=== PATIENT | female | born 1990 | race Caucasian/White ===

== ENCOUNTER 2018-05-10 12:28 | Inpatient (IN) | payer OTHER ==
[2018-05-10 13:39] VITALS: BMI 24.1
--- NOTE | 2018-05-10 16:35 | HP ---
CIWA Score - CIWA Score Nausea/Vomitin-No Nausea/No Vomiting Muscle Tremors: 4-Moderate,w/Arms Extend Anxiety: 4-Mod. Anxious/Guarded Agitation: 3 Paroxysmal Sweats: 2 Orientation: 0-Oriented Tacttile Disturbances: 1-Very Mild Itch/Numbness Auditory Disturbances: 0-None Visual Disturbances: 0-None Headache: 0-None Present CIWA-Ar Total Score: 14 Admission ROS S - HPI Chief Complaint: " My chief creative officer send me here" alcohol withdrawal symptoms Allergies/Adverse Reactions: Allergies Allergy/AdvReac Type Severity Reaction Status Date / Time No Known Allergies Allergy Verified 05/10/18 15:22 History of Present Illness: 27 yo female with hx of alcohol dependence is here seeking detox for the first times, reports first time in treatment, mandated by probation d/t DWI February 2018. Reports started having issues with alcohol as of last year. PMHX: anxiety. Denies suicidal / homicidal ideation or hx of suicide attempt. Reports no significant period of sobriety. Denies hx of seizures or blackouts. Exam Limitations: No Limitations - Ebola screening Have you traveled outside of the country in the last 21 days: No Have you had contact with anyone from an Ebola affected area: No Have you been sick,other than usual withdrawal symptoms: No Do you have a fever: No - Review of Systems Constitutional: Chills, Changes in sleep, Other (shakes) EENT: reports: No Symptoms Reported Respiratory: reports: No Symptoms reported Cardiac: reports: No Symptoms Reported GI: reports: Poor Fluid Intake, Abdominal cramping : reports: No Symptoms Reported Musculoskeletal: reports: No Symptoms Reported Integumentary: reports: Sweating Neuro: reports: Tremors, Weakness Endocrine: reports: No Symptoms Reported Hematology: reports: No Symptoms Reported Psychiatric: reports: Orientated x3, Anxious Other Systems: Reviewed and Negative Patient History - Patient Medical History Hx Anemia: No Hx Asthma: No Hx Chronic Obstructive Pulmonary Disease (COPD): No Hx Cancer: No Hx Cardiac Disorders: No Hx Congestive Heart Failure: No Hx Hypertension: No Hx Hypercholesterolemia: No Hx Pacemaker: No HX Cerebrovascular Accident: No Hx Seizures: No Hx Dementia: No Hx Diabetes: No Hx Gastrointestinal Disorders: No Hx Liver Disease: No Hx Genitourinary Disorders: No Hx Sexually Transmitted Disorders: No Hx Renal Disease (ESRD): No Hx Thyroid Disease: No Hx Human Immunodeficiency Virus (HIV): No (Last tested one moth ago, results NEG ) Hx Hepatitis C: No Hx Depression: No Hx Suicide Attempt: No Hx Bipolar Disorder: No Hx Schizophrenia: No Other Medical History: Anxiety - Patient Surgical History Past Surgical History: No Hx Neurologic Surgery: No Hx Cataract Extraction: No Hx Cardiac Surgery: No Hx Lung Surgery: No Hx Breast Surgery: No Hx Breast Biopsy: No Hx Abdominal Surgery: No Hx Appendectomy: No Hx Cholecystectomy: No Hx Genitourinary Surgery: No Hx Section: No Hx Orthopedic Surgery: No Anesthesia Reaction: No - PPD History Previous Implant?: Yes Documented Results: Negative w/o proof Implanted On Prior R Admission?: No PPD to be Administered?: Yes - Reproductive History Patient is a Female of Child Bearing Age (11 -55 yrs old): Yes Last Menstrual Period: 04/23/18 Patient : No - Smoking Cessation Smoking history: Current some day smoker Have you smoked in the past 12 months: Yes Aproximately how many cigarettes per day: 1 Hx Chewing Tobacco Use: No Initiated information on smoking cessation: Yes 'Breaking Loose' booklet given: 05/10/18 - Substance & Tx. History Hx Alcohol Use: Yes Hx Substance Use: Yes Substance Use Type: Alcohol Hx Substance Use Treatment: No - Substances Abused Alcohol-vodka/beer Route: Oral Frequency: Daily Amount used: 1 pt. + 1 x 6 pk. Age of first use: 22 Date of Last Use: 05/10/18 Family Disease History - Family Disease History Family History: Denies Admission Physical Exam BHS - Vital Signs Vital Signs: Vital Signs - 24 hr 05/10/18 13:27 Temperature 98.5 F Pulse Rate 90 Respiratory 18 Rate Blood Pressure 124/92 - Physical General Appearance: Yes: Disheveled, Moderate Distress, Alcohol on Breath, Tremorous, Sweating, Anxious HEENTM: Yes: EOMI, Hearing grossly Normal, Normal ENT Inspection, Normocephalic , Normal Voice, CHANTELL, Pharynx Normal, Tm's normal, Other (dry mucous membranes, cheilithis) Respiratory: Yes: Chest Non-Tender, Lungs Clear, Normal Breath Sounds, No Respiratory Distress, No Accessory Muscle Use Neck: Yes: Within Normal Limits Breast: Yes: Breast Exam Deferred Cardiology: Yes: Regular Rhythm, Regular Rate Abdominal: Yes: Normal Bowel Sounds, Non Tender, Flat, Soft Genitourinary: Yes: Within Normal Limits Back: Yes: Normal Inspection Musculoskeletal: Yes: full range of Motion, Gait Steady, Pelvis Stable, Back pain Extremities: Yes: Normal Capillary Refill, Normal Inspection, Normal Range of Motion, Non-Tender Neurological: Yes: advanced seal delivery system II-XII NML intact, Fully Oriented, Alert, Motor Strength 5/5, Depressed Affect Integumentary: Yes: Normal Color, Warm, Diaphoresis Lymphatic: Yes: Within Normal Limits - Diagnostic (1) Alcohol dependence with withdrawal Current Visit: Yes Status: Acute Qualifiers: Complication of substance-induced condition: uncomplicated Qualified Code(s ): F10.230 - Alcohol dependence with withdrawal, uncomplicated (2) Anxious mood Current Visit: Yes Status: Acute Cleared for Admission [facility] - Detox or Rehab [facility] Level of Care: Medically Managed Detox Regimen/Protocol: Librium [facility] Breath Alcohol Content Breath Alcohol Content: 0.054 Urine Pregancy Test - Result Urine Test Results: Negative- NO Line Present Urine Drug Screen - Results Drug Screen Negative: Yes
[2018-05-10] MEDS ORDERED: MAGNESIUM HYDROX 2400MG/30ML ORAL SUSPENSION 30 ML CUP PO PRN (16:36)
[2018-05-10] MEDS ORDERED: MAGNESIUM CITRATE 300 ML BOTTLE PO PRN (16:36)
[2018-05-10] MEDS ORDERED: guaiFENesin/D-METHORPHAN HB 10 ML UNIT-DOSE CUPS PO PRN (16:36)
[2018-05-10] MEDS ORDERED: IBUPROFEN 400 MG TABLET (FP) PO PRN (16:36)
[2018-05-10] MEDS ORDERED: MAG HYDROX/AL HYDROX/SIMETH 30 ML UNIT-DOSE CUP PO PRN (16:36)
[2018-05-10] MEDS ORDERED: MENTHOL/PHENOL 1 EACH UD MM PRN (16:36)
[2018-05-10] MEDS ORDERED: LOPERAMIDE HCL 2 MG CAPSULE PO PRN (16:36)
[2018-05-10] MEDS ORDERED: chlordiazePOXIDE HCL 25 MG CAPSULE PO ONE (16:36)
[2018-05-10] MEDS ORDERED: P-EPHED 60MG/TRIPROLIDI 2.5MG TABLET PO PRN (16:36)
[2018-05-10] MEDS: chlordiazePOXIDE HCL 25 MG CAPSULE PO PRN (17:54)
[2018-05-10] MEDS: hydrOXYzine PAMOATE 50 MG CAPSULE (FP) PO PRN (17:54)
[2018-05-10] MEDS: THIAMINE HCL 100 MG TABLET (FP) PO SCH (22:15)
[2018-05-10] MEDS: MELATONIN 5 MG TABLETS PO PRN (22:15)
[2018-05-10] MEDS: chlordiazePOXIDE HCL 25 MG CAPSULE PO SCH (22:15)
[2018-05-10] MEDS: BACLOFEN 10 MG TABLET (FP) PO SCH (22:15)
[2018-05-10 23:55] LABS: URINE APPEARANCE SLCLOUDY; URINE BILIRUBIN NEGATIVE (<2.0 mg/dL); URINE COLOR YELLOW; URINE GLUCOSE (UA) NEGATIVE (NEGATIVE); URINE KETONE NEGATIVE (NEGATIVE); URINE LEUK ESTERASE NEGATIVE (NEGATIVE); URINE NITRITE NEGATIVE (NEGATIVE); URINE PROTEIN 1+ (NEGATIVE); URINE UROBILINOGEN NEGATIVE mg/dL (0.2-1.0)
[2018-05-11 01:29] LABS: EPI CELLS FEW /HPF (FEW); URINE BACTERIA RARE /hpf (NONE SEEN); URINE MUCUS RARE
[2018-05-11] MEDS: chlordiazePOXIDE HCL 25 MG CAPSULE PO SCH ×4 (05:26→22:11)
--- NOTE | 2018-05-11 09:03 | CONSULT ---
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 This is patient's first admission to detox at [facility]. Patient admitted to for alcohol dependence. Substance Abuse History: Smoking Cessation. Smoking history: Current some day smoker. Have you smoked in the past 12 months: Yes. Aproximately how many cigarettes per day: 1. Hx Chewing Tobacco Use: No. Initiated information on smoking cessation: Yes. 'Breaking Loose' booklet given: 05/10/18. - Substance & Tx. History. Hx Alcohol Use: Yes. Hx Substance Use: Yes. Substance Use Type : Alcohol. Hx Substance Use Treatment: No. - Substances Abused. Alcohol- vodka/beer. Route: Oral. Frequency: Daily. Amount used: 1 pt. + 1 x 6 pk. Age of first use: 22. Date of Last Use: 05/10/18 Medical History: denies. Psychiatric History: Patient denies h/o psychiatric hospitalization, outpatient care, and suicide attempt. Patient reports anxiety and poor sleep. Physical/Sexual Abuse/Trauma History: denies. Mental Status Exam - Mental Status Exam Alert and Oriented to: Time, Place, Person Cognitive Function: Good Patient Appearance: Well Groomed Mood: Anxious, Euthymic Affect: Mood Congruent Patient Behavior: Appropriate, Cooperative Speech Pattern: Clear, Appropriate Voice Loudness: Normal Thought Process: Intact, Goal Oriented Thought Disorder: Not Present Hallucinations: Denies Suicidal Ideation: Denies Homicidal Ideation: Denies Insight/Judgement: Poor Sleep: Poorly Appetite: Fair Muscle strength/Tone: Normal Gait/Station: Normal Psychiatric Findings - Problem List (Beatty 1, 2,3) (1) Alcohol dependence with withdrawal Current Visit: Yes Status: Acute Qualifiers: Complication of substance-induced condition: uncomplicated Qualified Code(s ): F10.230 - Alcohol dependence with withdrawal, uncomplicated (2) Insomnia Current Visit: Yes Status: Acute - Initial Treatment Plan Initial Treatment Plan: Psychoeducation provided. Detoxification in progress. Patient informed that vistaril 50mg q4h and melatonin 5mg are available for anxiety and insomnia.
[2018-05-11] MEDS: BACLOFEN 10 MG TABLET (FP) PO SCH ×2 (10:28→22:11)
[2018-05-11] MEDS: PRENATAL VITAMINS W/ FOLIC ACID TABLET (FP) PO SCH (10:28)
[2018-05-11 10:30] LABS: WHITE BLOOD COUNT 3.5 K/mm3 (4.0-10.0)
[2018-05-11 10:32] LABS: ALBUMIN 3.9 g/dl (3.4-5.0); ALK PHOS 52 U/L (45-117); ANION GAP 9 MMOL/L (8-16); BILIRUBIN,TOTAL 0.8 mg/dL (0.2-1); BLOOD UREA NITROGEN 10 mg/dL (7-18); CALCIUM 8.6 mg/dL (8.5-10.1); CHLORIDE 99 mmol/L (98-107); CO2 29 mmol/L (21-32); CREATININE 0.5 mg/dL (0.55-1.3); GLUCOSE,RANDOM 88 mg/dL (74-106); POTASSIUM 3.4 mmol/L (3.5-5.1); SGOT/AST 84 U/L (15-37); SGPT/ALT 91 U/L (13-61); SODIUM 138 mmol/L (136-145); TOT PROT 6.8 g/dl (6.4-8.2)
[2018-05-11 10:34] LABS: HEMATOCRIT 41.7 % (32.4-45.2); HEMOGLOBIN 13.5 GM/dL (10.7-15.3); MCH 33.7 pg (25.7-33.7); MCHC 32.3 g/dl (32.0-36.0); MEAN CELL VOLUME 104.2 fl (80-96); MEAN PLT VOLUME 9.8 fl (7.5-11.1); PLATELET COUNT 128 K/MM3 (134-434); RDW 13.2 % (11.6-15.6)
--- NOTE | 2018-05-11 11:19 | PN ---
S CIWA - CIWA Score Nausea/Vomitin-No Nausea/No Vomiting Muscle Tremors: 3 Anxiety: 3 Agitation: 3 Paroxysmal Sweats: 3 Orientation: 0-Oriented Tacttile Disturbances: 0-None Auditory Disturbances: 0-None Visual Disturbances: 0-None Headache: 0-None Present CIWA-Ar Total Score: 12 BHS Progress Note (SOAP) Subjective: shakes sweats last night body aches anxiety Objective: 05/11/18 11:18 Vital Signs Temperature 98.2 F 05/11/18 09:29 Pulse Rate 109 H 05/11/18 09:29 Respiratory Rate 16 05/11/18 09:29 Blood Pressure 119/72 05/11/18 09:29 O2 Sat by Pulse Oximetry (%) Laboratory Tests 05/10/18 05/11/18 05/11/18 21:07 07:30 07:30 WBC 3.5 L RBC 4.00 Hgb 13.5 Hct 41.7 MCV 104.2 H MCH 33.7 MCHC 32.3 RDW 13.2 Plt Count 128 L MPV 9.8 Sodium 138 Potassium 3.4 L Chloride 99 Carbon Dioxide 29 Anion Gap 9 BUN 10 Creatinine 0.5 L Creat Clearance w eGFR > 60 Random Glucose 88 Calcium 8.6 Total Bilirubin 0.8 AST 84 H ALT 91 H Alkaline Phosphatase 52 Total Protein 6.8 Albumin 3.9 Urine Color Yellow Urine Appearance Slcloudy Urine pH 6.0 Ur Specific [place] 1.026 Urine Protein 1+ H Urine Glucose (UA) Negative Urine Ketones Negative Urine Blood Negative Urine Nitrite Negative Urine Bilirubin Negative Urine Urobilinogen Negative Ur Leukocyte Esterase Negative Urine WBC (Auto) <1 Urine RBC (Auto) 2 Ur Epithelial Cells Few Urine Bacteria Rare Urine Mucus Rare labs noted d/c tylenol elevated ast/alt low potassium k-dur 20meq x 4 days ordered Assessment: 05/11/18 11:19 withdrawal sx Plan: continue detox increase fluids
--- NOTE | 2018-05-11 11:38 | EKG ---
Test Reason : Blood Pressure : / mmHG Vent. Rate : 081 BPM Atrial Rate : 081 BPM P-R Int : 126 ms QRS Dur : 072 ms QT Int : 376 ms P-R-T Axes : 031 075 048 degrees QTc Int : 436 ms NORMAL SINUS RHYTHM WITH SINUS ARRHYTHMIA NORMAL ECG NO PREVIOUS ECGS AVAILABLE Confirmed by COLLIN GREEN MD ([id number]) on 05/11/2018 11:37:35 AM Referred By: Confirmed By:COLLIN GREEN MD
[2018-05-11] MEDS ORDERED: FLU VACCINE QUAD 60 MCG/0.5 ML (MDV 18-19) IM ONE (12:00)
[2018-05-11] MEDS: hydrOXYzine PAMOATE 50 MG CAPSULE (FP) PO PRN ×3 (12:35→22:10)
[2018-05-11] MEDS: POTASSIUM CHLORIDE TABS 20 MEQ TABLET.ER (FP) PO SCH (12:35)
[2018-05-11] MEDS: chlordiazePOXIDE HCL 25 MG CAPSULE PO PRN (14:21)
[2018-05-11] MEDS: THIAMINE HCL 100 MG TABLET (FP) PO SCH (22:10)
[2018-05-11] MEDS: MELATONIN 5 MG TABLETS PO PRN (22:11)
[2018-05-12] MEDS: hydrOXYzine PAMOATE 50 MG CAPSULE (FP) PO PRN ×4 (01:53→22:12)
[2018-05-12] MEDS: chlordiazePOXIDE HCL 25 MG CAPSULE PO SCH ×3 (05:37→17:52)
[2018-05-12] MEDS: POTASSIUM CHLORIDE TABS 20 MEQ TABLET.ER (FP) PO SCH (10:12)
[2018-05-12] MEDS: PRENATAL VITAMINS W/ FOLIC ACID TABLET (FP) PO SCH (10:12)
[2018-05-12] MEDS: BACLOFEN 10 MG TABLET (FP) PO SCH ×2 (10:12→22:12)
--- NOTE | 2018-05-12 14:04 | PN ---
S CIWA - CIWA Score Nausea/Vomitin-No Nausea/No Vomiting Muscle Tremors: None Anxiety: 4-Mod. Anxious/Guarded Agitation: 3 Paroxysmal Sweats: No Perspiration Orientation: 0-Oriented Tacttile Disturbances: 0-None Auditory Disturbances: 0-None Visual Disturbances: 0-None Headache: 0-None Present CIWA-Ar Total Score: 7 BHS Progress Note (SOAP) Subjective: PATIENT C/O INTERRUPTED SLEEP, IRRITABLE. Objective: 05/12/18 14:02 Vital Signs Temperature 97.9 F 05/12/18 09:50 Pulse Rate 84 05/12/18 09:50 Respiratory Rate 18 05/12/18 09:50 Blood Pressure 128/74 05/12/18 09:50 O2 Sat by Pulse Oximetry (%) Laboratory Tests 05/10/18 05/11/18 05/11/18 21:07 07:30 07:30 WBC 3.5 L RBC 4.00 Hgb 13.5 Hct 41.7 MCV 104.2 H MCH 33.7 MCHC 32.3 RDW 13.2 Plt Count 128 L MPV 9.8 Sodium 138 Potassium 3.4 L Chloride 99 Carbon Dioxide 29 Anion Gap 9 BUN 10 Creatinine 0.5 L Creat Clearance w eGFR > 60 Random Glucose 88 Calcium 8.6 Total Bilirubin 0.8 AST 84 H ALT 91 H Alkaline Phosphatase 52 Total Protein 6.8 Albumin 3.9 Urine Color Yellow Urine Appearance Slcloudy Urine pH 6.0 Ur Specific [place] 1.026 Urine Protein 1+ H Urine Glucose (UA) Negative Urine Ketones Negative Urine Blood Negative Urine Nitrite Negative Urine Bilirubin Negative Urine Urobilinogen Negative Ur Leukocyte Esterase Negative Urine WBC (Auto) <1 Urine RBC (Auto) 2 Ur Epithelial Cells Few Urine Bacteria Rare Urine Mucus Rare RPR Titer 05/11/18 07:30 WBC RBC Hgb Hct MCV MCH MCHC RDW Plt Count MPV Sodium Potassium Chloride Carbon Dioxide Anion Gap BUN Creatinine Creat Clearance w eGFR Random Glucose Calcium Total Bilirubin AST ALT Alkaline Phosphatase Total Protein Albumin Urine Color Urine Appearance Urine pH Ur Specific [place] Urine Protein Urine Glucose (UA) Urine Ketones Urine Blood Urine Nitrite Urine Bilirubin Urine Urobilinogen Ur Leukocyte Esterase Urine WBC (Auto) Urine RBC (Auto) Ur Epithelial Cells Urine Bacteria Urine Mucus RPR Titer Nonreactive ALERT AND IRRITABLE AMB AD KACY EXT FULL ROM Assessment: 05/12/18 14:03 WITHDRAWAL SX Plan: CONTINUE DETOX REGIMEN ENCOURAGE ORAL FLUIDS REPEAT K+ LEVEL IN AM CONTINUE TO MONITOR CLINICALLY
[2018-05-12] MEDS: NICOTINE POLACRILEX 2 MG GUM BUC PRN ×2 (16:00→18:20)
[2018-05-12] MEDS: THIAMINE HCL 100 MG TABLET (FP) PO SCH (22:12)
[2018-05-12] MEDS: chlordiazePOXIDE 5 MG CAPSULE PO SCH (22:13)
[2018-05-13] MEDS: chlordiazePOXIDE HCL 25 MG CAPSULE PO PRN (00:54)
[2018-05-13] MEDS: MELATONIN 5 MG TABLETS PO PRN (00:54)
[2018-05-13] MEDS: chlordiazePOXIDE 5 MG CAPSULE PO SCH ×3 (05:46→17:31)
[2018-05-13] MEDS: POTASSIUM CHLORIDE TABS 20 MEQ TABLET.ER (FP) PO SCH (10:20)
[2018-05-13] MEDS: BACLOFEN 10 MG TABLET (FP) PO SCH ×2 (10:20→22:14)
[2018-05-13] MEDS: PRENATAL VITAMINS W/ FOLIC ACID TABLET (FP) PO SCH (10:20)
[2018-05-13] MEDS: hydrOXYzine PAMOATE 50 MG CAPSULE (FP) PO PRN ×3 (10:21→22:14)
--- NOTE | 2018-05-13 12:52 | PN ---
BHS Progress Note (SOAP) Subjective: feeling better no tremor less sweat no gi distress no headaches Objective: 05/13/18 12:51 Vital Signs Temperature 97.7 F 05/13/18 09:41 Pulse Rate 86 05/13/18 09:41 Respiratory Rate 16 05/13/18 09:41 Blood Pressure 105/74 05/13/18 09:41 O2 Sat by Pulse Oximetry (%) Laboratory Last Values WBC 3.5 K/mm3 (4.0-10.0) L 05/11/18 07:30 RBC 4.00 M/mm3 (3.60-5.2) 05/11/18 07:30 Hgb 13.5 GM/dL (10.7-15.3) 05/11/18 07:30 Hct 41.7 % (32.4-45.2) 05/11/18 07:30 MCV 104.2 fl (80-96) H 05/11/18 07:30 MCH 33.7 pg (25.7-33.7) 05/11/18 07:30 MCHC 32.3 g/dl (32.0-36.0) 05/11/18 07:30 RDW 13.2 % (11.6-15.6) 05/11/18 07:30 Plt Count 128 K/MM3 (134-434) L 05/11/18 07:30 MPV 9.8 fl (7.5-11.1) 05/11/18 07:30 Sodium 138 mmol/L (136-145) 05/11/18 07:30 Potassium 3.8 mmol/L (3.5-5.1) 05/13/18 07:44 Chloride 99 mmol/L (98-107) 05/11/18 07:30 Carbon Dioxide 29 mmol/L (21-32) 05/11/18 07:30 Anion Gap 9 MMOL/L (8-16) 05/11/18 07:30 BUN 10 mg/dL (7-18) 05/11/18 07:30 Creatinine 0.5 mg/dL (0.55-1.3) L 05/11/18 07:30 Creat Clearance w eGFR > 60 (>60) 05/11/18 07:30 Random Glucose 88 mg/dL (74-106) 05/11/18 07:30 Calcium 8.6 mg/dL (8.5-10.1) 05/11/18 07:30 Total Bilirubin 0.8 mg/dL (0.2-1) 05/11/18 07:30 AST 84 U/L (15-37) H 05/11/18 07:30 ALT 91 U/L (13-61) H 05/11/18 07:30 Alkaline Phosphatase 52 U/L (45-117) 05/11/18 07:30 Total Protein 6.8 g/dl (6.4-8.2) 05/11/18 07:30 Albumin 3.9 g/dl (3.4-5.0) 05/11/18 07:30 Urine Color Yellow 05/10/18 21:07 Urine Appearance Slcloudy 05/10/18 21:07 Urine pH 6.0 (5.0-8.0) 05/10/18 21:07 Ur Specific [place] 1.026 (1.010-1.035) 05/10/18 21:07 Urine Protein 1+ (NEGATIVE) H 05/10/18 21:07 Urine Glucose (UA) Negative (NEGATIVE) 05/10/18 21:07 Urine Ketones Negative (NEGATIVE) 05/10/18 21:07 Urine Blood Negative (NEGATIVE) 05/10/18 21:07 Urine Nitrite Negative (NEGATIVE) 05/10/18 21:07 Urine Bilirubin Negative (<2.0 mg/dL) 05/10/18 21:07 Urine Urobilinogen Negative mg/dL (0.2-1.0) 05/10/18 21:07 Ur Leukocyte Esterase Negative (NEGATIVE) 05/10/18 21:07 Urine WBC (Auto) <1 /hpf (3-5) 05/10/18 21:07 Urine RBC (Auto) 2 /hpf (0-3) 05/10/18 21:07 Ur Epithelial Cells Few /HPF (FEW) 05/10/18 21:07 Urine Bacteria Rare /hpf (NONE SEEN) 05/10/18 21:07 Urine Mucus Rare 05/10/18 21:07 RPR Titer Nonreactive (NONREACTIVE) 05/11/18 07:30 lab noted Assessment: 05/13/18 12:52 midl withdrawal sx Plan: medically supervised detox
[2018-05-13] MEDS: THIAMINE HCL 100 MG TABLET (FP) PO SCH (22:14)
[2018-05-13] MEDS: chlordiazePOXIDE HCL 10 MG CAPSULE PO SCH (22:14)
[2018-05-14] MEDS: chlordiazePOXIDE HCL 10 MG CAPSULE PO SCH (05:22)
[2018-05-14 07:02] VITALS: BP 105/72; PULSE 74; TEMP 97
[2018-05-14] MEDS: BACLOFEN 10 MG TABLET (FP) PO SCH (09:04)
[2018-05-14] MEDS: hydrOXYzine PAMOATE 50 MG CAPSULE (FP) PO PRN (09:05)
--- NOTE | 2018-05-14 16:11 | DS ---
[facility] Detox Discharge Summary Admission Date: 05/10/18 Discharge Date: 05/14/18 - History Present History: Alcohol Dependence Additional Comments: 27 yeas old female admitted on 05/10/18 for alcohol withdrawal sx completed alcohol detox regimen tolerated well denies alcohol withdrawal sx alert oriented x 3 no acute distress aftercare pathway - Physical Exam Results Vital Signs: Vital Signs Temperature 97 F L 05/14/18 07:01 Pulse Rate 74 05/14/18 07:01 Respiratory Rate 16 05/14/18 07:01 Blood Pressure 105/72 05/14/18 07:01 O2 Sat by Pulse Oximetry (%) Pertinent Admission Physical Exam Findings: alcohol withdrawal sx Vital Signs Temperature 97 F L 05/14/18 07:01 Pulse Rate 74 05/14/18 07:01 Respiratory Rate 16 05/14/18 07:01 Blood Pressure 105/72 05/14/18 07:01 O2 Sat by Pulse Oximetry (%) Laboratory Last Values WBC 3.5 K/mm3 (4.0-10.0) L 05/11/18 07:30 RBC 4.00 M/mm3 (3.60-5.2) 05/11/18 07:30 Hgb 13.5 GM/dL (10.7-15.3) 05/11/18 07:30 Hct 41.7 % (32.4-45.2) 05/11/18 07:30 MCV 104.2 fl (80-96) H 05/11/18 07:30 MCH 33.7 pg (25.7-33.7) 05/11/18 07:30 MCHC 32.3 g/dl (32.0-36.0) 05/11/18 07:30 RDW 13.2 % (11.6-15.6) 05/11/18 07:30 Plt Count 128 K/MM3 (134-434) L 05/11/18 07:30 MPV 9.8 fl (7.5-11.1) 05/11/18 07:30 Sodium 138 mmol/L (136-145) 05/11/18 07:30 Potassium 3.8 mmol/L (3.5-5.1) 05/13/18 07:44 Chloride 99 mmol/L (98-107) 05/11/18 07:30 Carbon Dioxide 29 mmol/L (21-32) 05/11/18 07:30 Anion Gap 9 MMOL/L (8-16) 05/11/18 07:30 BUN 10 mg/dL (7-18) 05/11/18 07:30 Creatinine 0.5 mg/dL (0.55-1.3) L 05/11/18 07:30 Creat Clearance w eGFR > 60 (>60) 05/11/18 07:30 Random Glucose 88 mg/dL (74-106) 05/11/18 07:30 Calcium 8.6 mg/dL (8.5-10.1) 05/11/18 07:30 Total Bilirubin 0.8 mg/dL (0.2-1) 05/11/18 07:30 AST 84 U/L (15-37) H 05/11/18 07:30 ALT 91 U/L (13-61) H 05/11/18 07:30 Alkaline Phosphatase 52 U/L (45-117) 05/11/18 07:30 Total Protein 6.8 g/dl (6.4-8.2) 05/11/18 07:30 Albumin 3.9 g/dl (3.4-5.0) 05/11/18 07:30 Urine Color Yellow 05/10/18 21:07 Urine Appearance Slcloudy 05/10/18 21:07 Urine pH 6.0 (5.0-8.0) 05/10/18 21:07 Ur Specific [place] 1.026 (1.010-1.035) 05/10/18 21:07 Urine Protein 1+ (NEGATIVE) H 05/10/18 21:07 Urine Glucose (UA) Negative (NEGATIVE) 05/10/18 21:07 Urine Ketones Negative (NEGATIVE) 05/10/18 21:07 Urine Blood Negative (NEGATIVE) 05/10/18 21:07 Urine Nitrite Negative (NEGATIVE) 05/10/18 21:07 Urine Bilirubin Negative (<2.0 mg/dL) 05/10/18 21:07 Urine Urobilinogen Negative mg/dL (0.2-1.0) 05/10/18 21:07 Ur Leukocyte Esterase Negative (NEGATIVE) 05/10/18 21:07 Urine WBC (Auto) <1 /hpf (3-5) 05/10/18 21:07 Urine RBC (Auto) 2 /hpf (0-3) 05/10/18 21:07 Ur Epithelial Cells Few /HPF (FEW) 05/10/18 21:07 Urine Bacteria Rare /hpf (NONE SEEN) 05/10/18 21:07 Urine Mucus Rare 05/10/18 21:07 RPR Titer Nonreactive (NONREACTIVE) 05/11/18 07:30 lab noted - Treatment Hospital Course: Detox Protocol Followed, Detoxed Safely, Responded well, Discharged Condition Good, Rehab Referral Accepted Patient has Accepted a Rehab Referral to: pathway - Medication Discharge Medications: Ambulatory Orders NK [No Known Home Medication] 05/10/18 - Diagnosis (1) Alcohol dependence with withdrawal Status: Acute Qualifiers: Complication of substance-induced condition: uncomplicated Qualified Code(s ): F10.230 - Alcohol dependence with withdrawal, uncomplicated - AMA Did Patient Leave Against Medical Advice: No
== END 2018-05-14 09:07 | disposition home or self-care (01) | DRG 775 ==
LOC: YASAS 12:28 → Y6N 16:22
PROC: HZ2ZZZZ Detoxification Services for Substance Abuse Treatment (ICD-10-PCS; principal; 2018-05-10)
DX: F10.230 Alcohol dependence with withdrawal, uncomplicated (principal); F17.210 Nicotine dependence, cigarettes, uncomplicated; F41.9 Anxiety disorder, unspecified; G47.00 Insomnia, unspecified
CPT/HCPCS: 36415; 80053; 81003; 81015; 84132; 85027; 86593; 93005; 93010; J0475